=== PATIENT | female | born 1995 | race Caucasian/White ===

== ENCOUNTER 2016-08-10 01:37 | Emergency (ER) | payer OTHER ==
--- NOTE | ~2016-08-10 | CT52 ---
[facility] A Service of [facility] RADIOLOGY TEXT RESULTS PATIENT: STEPHANY AUGUSTINE LOCATION: [facility] : [birth year] UNIT #: [id number] AGE: [address]: SERGE PETER APRN SEX: F ORDER DR: [id number] [facility]. [place], [place] [address] [id number] E MR#: [id number] Acc #: [id number] NAME: STEPHANY AUGUSTINE : 1995 SEX: F STUDY DATE/TIME: 08/10/2016 3:00 UNIT: [facility] ROOM: STUDY DESCRIPTION: CT Cervical Spine Wo Cont Attending Physician: Serge Peter Aprn Ordering Physician: Serge Peter Aprn Primary Care Physician: No Primary Care Physician MEDICAL IMAGING REPORT This report is preliminary unless electronic signature is present EXAM CT cervical spine, 08/10/2016. HISTORY 21-year-old female in the ED complaining of 1-day history of severe migraine-type headache. Difficulty moving her left arm. TECHNIQUE Thin-section axial CT images were obtained from the skull base through the lower margin of T1. Sagittal and coronal images were reconstructed. This CT exam was performed with one or more of the following radiation dose reduction techniques: automatic exposure control, adjustment of mA and/or kV according to patient size, and iterative reconstruction. FINDINGS The examination is negative. No acute or chronic fracture deformity or other osseous lesion. Cervical disc spaces and cervical vertebral alignment are within normal limits. IMPRESSION Negative CT examination of the cervical spine. Dictated by... Minh Chandler M.D. THIS IS AN ELECTRONICALLY VERIFIED REPORT Minh Chandler M.D. at 08/10/2016 10:06 PM JOSIE/beatrice TD: 08/10/2016 13:22 JOB #: [id number] MEDICAL IMAGING REPORT [facility] A Service [facility] RADIOLOGY TEXT RESULTS PATIENT: STEPHANY AUGUSTINE LOCATION: [facility] : [birth year] UNIT #: [id number] AGE: [address]: SERGE PETER APRN SEX: F ORDER DR: Page 1 of 1 COPY
--- NOTE | ~2016-08-10 | CT71 ---
[facility] A Service of [facility] RADIOLOGY TEXT RESULTS PATIENT: STEPHANY AUGUSTINE LOCATION: [facility] : [birth year] UNIT #: [id number] AGE: [address]: SERGE PETER APRN SEX: F ORDER DR: [id number] [facility] [address] [facility]. [place], [place] [address] [id number] E MR#: [id number] Acc #: [id number] NAME: STEPHANY AUGUSTINE : 1995 SEX: F STUDY DATE/TIME: 08/10/2016 2:54 UNIT: [facility] ROOM: STUDY DESCRIPTION: CT Head Wo Contrast Attending Physician: Serge Peter Aprn Ordering Physician: Serge Peter Aprn Primary Care Physician: Primary Care Physician No MEDICAL IMAGING REPORT This report is preliminary unless electronic signature is present EXAM CT head, noncontrast, 08/10/2016 HISTORY 21-year-old female in the ED complaining of 1-day history of severe migraine-type headache. Difficulty moving left arm. No reported acute injury. TECHNIQUE CT examination of the head without IV contrast. This CT examination was performed with one or more of the following radiation dose reduction techniques: automatic exposure control, adjustment of mA and/or kV according to patient size, and iterative reconstruction. FINDINGS The examination is negative. No evidence of intracranial hemorrhage, mass, mass effect, cerebral edema or hydrocephalus. Note is made of mucosal thickening throughout the visualized frontal, ethmoid and maxillary sinuses. IMPRESSION 1. Negative noncontrast head CT examination. No change since 12/21/2011. 2. Extensive mucosal thickening throughout the visualized paranasal sinuses. Dictated by... Minh Chandler M.D. THIS IS AN ELECTRONICALLY VERIFIED REPORT Minh Chandler M.D. at 08/10/2016 10:06 PM JOSIE/omar [facility] A Service of [facility] RADIOLOGY TEXT RESULTS PATIENT: STEPHANY AUGUSTINE LOCATION: [facility] : [birth year] UNIT #: [id number] AGE: [address]: SERGE PETER APRN SEX: F ORDER DR: TD: 08/10/2016 13:22 JOB #: [id number] MEDICAL IMAGING REPORT Page 1 of 1 COPY
[~2016-08-10 01:37] MED LIST: ANTIBIOTIC; BACTRIM DS TABL1 TA1 PO; BACTRIM DS TABL1 TAB PO; CIPRO250 MG PO; NO MEDICATIONS; PHENERGAN25 M1 PO; PHENERGAN25 MG PO; PYRIDIUM PO; SEPTRA DS PO; ULTRAM PO; VOLTAREN75 MG PO
[2016-08-10 02:19] LABS: INFLUENZA A NEG (NEG); INFLUENZA B NEG (NEG)
[2016-08-10 02:23] LABS: URINE BILIRUBIN NEG (NEG); URINE BLOOD NEG (NEG); URINE COLOR YELLOW; URINE GLUCOSE NEG (NEG); URINE KETONE NEG (NEG); URINE LEUKOCYTE ESTERASE TRACE (NEG); URINE NITRATE POS (NEG); URINE PH 5.5 (5-8); URINE PROTEIN NEG (NEG); URINE SPECIFIC GRAVITY 1.028 (1.003-1.035)
[2016-08-10 02:25] LABS: CULTURE INDICATED? YES; URINE BACTERIA AUWI 4+ (NEGATIVE); URINE SQUAMOUS EPITHELIAL CELL OCC /[HPF]
[2016-08-10 02:35] LABS: BASOPHIL# 0.1 X10e3 (0-0.3); BASOPHIL% 0.9 % (0-2.5); EOSINOPHIL# 0.4 X10e3 (0-0.7); EOSINOPHIL% 5.8 % (0.0-7.0); HEMATOCRIT 42.4 % (35.0-45.0); HEMOGLOBIN 13.6 gm/dL (12.0-16.0); LYMPHOCYTE# 2.7 X10e3 (1.0-3.5); LYMPHOCYTE% 35.6 % (17.0-45.0); MEAN CELL VOLUME 88.6 FL (83-96); MEAN CORPUSCULAR HEMOGLOBIN 28.5 PG (28-34); MEAN CORPUSCULAR HGB CONC 32.2 g/dL (30-36); MONOCYTE# 0.9 X10e3 (0-1.0); MONOCYTE% 11.4 % (3.0-12.0); NEUTROPHIL# 3.5 X10e3 (1.5-7.1); NEUTROPHIL% 46.3 % (40-75); RED BLOOD COUNT 4.78 X10e (3.90-5.30); RED CELL DISTRIBUTION WIDTH 13.1 % (11.0-15.5); WHITE BLOOD COUNT 7.6 X10e3 (4.0-10.5)
[2016-08-10 02:40] LABS: AMPHETAMINE NEG (NEG); BARBITURATES NEG (NEG); BENZODIAZEPINES POS (NEG); COCAINE NEG (NEG); MARIJUANA POS (NEG); OPIATES POS (NEG); TRICYCLIC ANTIDEPRESSANTS NEG (NEG); U METHADONE NEG (NEG)
[2016-08-10 02:48] LABS: DIFF IND NO; PLATELET COUNT 283 X10e3 (140-420)
[2016-08-10 02:56] LABS: ALBUMIN SERUM 4.4 g/dL (3.5-5.0); ALKALINE PHOSPHATASE 56 U/L (32-92); ALT (SGPT) 14 U/L (10-40); AST (SGOT) 25 U/L (10-42); BILIRUBIN, DIRECT 0.3 mg/dL (0.0-0.2); BILIRUBIN,INDIRECT 0.5 mg/dL (0.0-0.9); BILIRUBIN,TOTAL 0.8 mg/dL (0.2-2.0); BLOOD UREA NITROGEN 16 mg/dL (9-23); CALCIUM SERUM 9.5 mg/dL (8.4-10.2); CARBON DIOXIDE 25 mmol/L (22-31); CHLORIDE 100 mmol/L (100-111); CREATININE SERUM 0.5 mg/dL (0.6-1.4); GLOM FILT RATE Estimated ABOVE60 mL/min (>60); GLUCOSE FASTING 89 mg/dL (70-110); POTASSIUM 4.7 mmol/L (3.5-5.1); PROTEIN TOTAL SERUM 7.9 g/dL (6.0-8.3); SODIUM 133 mmol/L (135-145)
== END 2016-08-10 04:45 | disposition home or self-care (01) ==
LOC: CED 01:37
PROVIDERS: Nurse Practitioner Family
DX: G56.92 Unspecified mononeuropathy of left upper limb (principal); F19.10 Other psychoactive substance abuse, uncomplicated; J02.0 Streptococcal pharyngitis; N39.0 Urinary tract infection, site not specified
CPT/HCPCS: 29125; 36415; 70450; 72125; 80048; 80076; 80307; 81003; 84703; 85025; 87086; 87088; 87186; 87804; 87880; 99284